=== PATIENT | female | born 1945 ===

== ENCOUNTER 2017-02-11 07:02 | Day surgery (SDC) | payer OTHER ==
[2017-02-03 09:24] VITALS: RESP 18
[2017-02-03 09:33] VITALS: BMI 25.8
[~2017-02-11 07:02] MED LIST: Flurbiprofen 0.3% Opht SOLN OU ONE; Phenylephrine 2.5% Opht Soln OD ONE; Tropicamide 1% Opht 150 DROP/15 ML OD ONE
[2017-02-11 07:32] VITALS: O2SAT 98
[2017-02-11] MEDS ORDERED: Lidocaine 1% 20 MG/2 ML PF AMP ONE (07:52)
[2017-02-11] MEDS ORDERED: Acetylcholine 1% Opth System Pack IO ONE ×2 (07:52→11:18)
[2017-02-11] MEDS ORDERED: EPINEPHrine 1 mg/ml (1:1000) Inj ONE (07:53)
[2017-02-11] MEDS ORDERED: Chondroitin/Hyaluronate Opth Syringe KIT (0.55 ml-0.5 ml) IO ONE ×2 (07:53→11:14)
[2017-02-11] MEDS ORDERED: Povidone Iodine 5% Opht SOLUTION ONE (09:02)
[2017-02-11] MEDS ORDERED: Midazolam 2 MG/2 ML VIAL ONE (11:00)
[2017-02-11] MEDS ORDERED: Lactated Ringer's 1,000 ML IV ONE (11:10)
[2017-02-11] MEDS ORDERED: Tetracaine 0.5% Ophth 2 ML BOTTLE OD ONE (11:11)
[2017-02-11] MEDS ORDERED: Povidone Iodine 5% Opht SOLUTION OD ONE (11:11)
[2017-02-11] MEDS ORDERED: Pilocarpine 1% Opht Soln OD ONE (11:20)
[2017-02-11] MEDS ORDERED: Maxitrol Opht Susp OD ONE (11:22)
[2017-02-11] MEDS ORDERED: BSS 15 ML SOL IR ONE (11:27)
[2017-02-11] MEDS ORDERED: Tropicamide 1% Opht 150 DROP/15 ML RIGHTEYE SCH (11:30)
[2017-02-11] MEDS ORDERED: Flurbiprofen 0.3% Opht SOLN OD SCH (11:30)
[2017-02-11] MEDS ORDERED: PHENYLEPHRINE HCL 2.5% OD SCH (11:30)
[2017-02-11 12:47] VITALS: BP 148/72; PULSE 56; TEMP 98
--- NOTE | 2017-02-12 06:47 | OP ---
SURGEON: ROMMEL MACDONALD MD ANESTHESIOLOGIST: MO BECKMAN MD ANESTHETIC: LOCAL / IV SEDATION PREOPERATIVE DIAGNOSIS: CATARACT RIGHT EYE. POSTOPERATIVE DIAGNOSIS: CATARACT RIGHT EYE. OPERATION: CLEAR CORNEAL PHACOEMULSIFICATION WITH LENS IMPLANT RIGHT EYE. PREPARATION AND PROCEDURE: After the patient was prepped and draped in the usual manner for sterile ophthalmic surgery, local IV sedation was administered ; eye seals were applied to the upper and lower lid margins and an adult wire lid speculum was placed within the lids. Under microsurgical control, a two- step clear corneal incision was made into the anterior chamber. The initial incision was perpendicular to the corneal plane. The second incision with the keratome was placed at a 45-degree angle to the first incision. One cc of one percent Xylocaine MPF was instilled into the anterior chamber to achieve proper intraocular anesthesia. At this time, the Viscoelastic was injected into the anterior chamber for protection of the endothelium and for maintenance of the chamber depth. A 360-degree continuous curvilinear capsulorrhexis was performed using a pre-bent 25-gauge needle. Hydrodissection and hydrodelineation were performed using a Coulter cannula and balanced salt solution. Utilizing the tip of the Coulter cannula, the nucleus was rotated freely within the capsular bag. A standard one-handed phacoemulsification was utilized at this time for sculpting and rotating of the nucleus. The nucleus was fragmented in its entirety and aspirated without any consequence. A standard I&A was carried out for the residual cortical material. No residual material was noted within the capsular bag. The posterior capsule was noted to be clear. Additional Viscoelastic was injected into the capsular bag in preparation for lens implantation. After this has been satisfactorily achieved the intraocular lens injected through the corneal incision into the capsular bag. The intraocular lens was manipulated until it was properly oriented and the Viscoelastic was evacuated from the capsular bag and anterior chamber. The anterior chamber was reformed with balanced salt solution. The corneal incision was irrigated with BSS. The intraocular pressure was found to be within normal limits. This terminated the procedure. The speculum and lid drapes were removed.TobraDex ophthalmic suspension and Pilocarpine 1% drops one drop was applied to the eye. POSTOPERATIVE CONDITION: The patient was brought to the Postanesthesia Recovery area with stable vital signs. DROMMEL PAYAN MDD
== END 2017-02-11 13:30 | disposition home or self-care (01) ==
LOC: H.OPSURG 07:02
PROVIDERS: ATTEND Ophthalmology
DX: H25.011 Cortical age-related cataract, right eye (principal); E11.9 Type 2 diabetes mellitus without complications; I10 Essential (primary) hypertension

== ENCOUNTER 2018-05-12 19:09 | Emergency (ER) | payer OTHER ==
[2018-05-12 19:10] VITALS: BMI 26.4
[2018-05-12 19:28] VITALS: TEMP 98.6; O2SAT 98
--- NOTE | 2018-05-12 20:18 | ED PDOC ---
Lower Extremity Pain/Injury Time Seen by Provider: 05/12/18 19:31 Chief Complaint (Nursing): Lower Extremity Problem/Injury Chief Complaint (Provider): Lower Extremity Problem/Injury History Per: Patient History/Exam Limitations: no limitations Onset/Duration Of Symptoms: Days (x 2), Sudden Onset Current Symptoms Are (Timing): Still Present Additional Complaint(s): 72 year old female with a history of DM and HTN presents to the ED with right heel pain associated with mild swelling for the last 2 days. Patient reports onset of right heel pain after she walked 4 blocks. She is unable to bear weight on her foot. Patient was wearing shoes she normally wears and did not injure or twist her foot. Pain does not extend to ankle and there is no warmth or redness present on foot. PMD: Dr. Luigi Warren Past Medical History Reviewed: Historical Data Vital Signs: Last Vital Signs Temp 98.6 F 05/12/18 19:24 Pulse 66 05/12/18 19:24 Resp 19 05/12/18 19:24 BP 192/82 H 05/12/18 19:24 Pulse Ox 98 05/12/18 19:24 - Medical History PMH: Arthritis, Diabetes, HTN, Hypercholesterolemia, Hyperlipidemia Denies: Chronic Kidney Disease - Surgical History Surgical History: No Surg Hx - Family History Family History: States: Hypertension - Home Medications Home Medications: Ambulatory Orders Medication Instructions Recorded Alendronate Sodium [Binosto] 70 mg PO DAILY 02/11/17 Aspirin [Ecotrin] 81 mg PO DAILY 02/11/17 Glimepiride [Amaryl] 4 mg PO DAILY 02/11/17 Latanoprost 0.005% Opht [Xalatan 1 % .ROUTE DAILY 02/11/17 Opht] Lisinopril/Hydrochlorothiazide 1 tab PO DAILY 02/11/17 [Lisinopril-Hydrochlorothiazide 25 mg-20 mg] MetFORMIN [glucOPHAGE] 1,000 mg PO DAILY 02/11/17 Metoprolol Tartrate [Lopressor] 100 mg PO DAILY 02/11/17 Pravastatin Sodium [Pravachol] 40 mg PO DAILY 02/11/17 amLODIPine [Norvasc] 5 mg PO DAILY 02/11/17 Tramadol HCl [Ultram] 50 mg PO Q6 #15 tab 02/25/17 Clindamycin [Cleocin] 300 mg PO Q6 #40 cap 05/12/18 - Allergies Allergies/Adverse Reactions: Allergies Allergy/AdvReac Type Severity Reaction Status Date / Time Penicillins Allergy SWELLING Verified 02/25/17 09:27 Review of Systems ROS Statement: Except As Marked, All Systems Reviewed And Found Negative Musculoskeletal: Positive for: Foot Pain (right heel pain) Physical Exam - Reviewed Nursing Documentation Reviewed: Yes Vital Signs Reviewed: Yes - Physical Exam Appears: Positive for: Non-toxic, No Acute Distress Head Exam: Positive for: ATRAUMATIC, NORMAL INSPECTION, NORMOCEPHALIC Skin: Positive for: Normal Color, Warm, Dry Eye Exam: Positive for: EOMI, Normal appearance, PERRL Neck: Positive for: Normal, Painless ROM, Supple Cardiovascular/Chest: Positive for: Regular Rate, Rhythm. Negative for: Murmur Respiratory: Positive for: Normal Breath Sounds. Negative for: Wheezing, Respiratory Distress Gastrointestinal/Abdominal: Positive for: Normal Exam, Soft. Negative for: Tenderness Extremity: Positive for: Normal ROM. Negative for: Deformity Neurologic/Psych: Positive for: Alert, Oriented (x 3). Negative for: Motor/ Sensory Deficits - Laboratory Results Result Diagrams: 05/12/18 22:40 05/12/18 21:15 - ECG O2 Sat by Pulse Oximetry: 98 (RA) Pulse Ox Interpretation: Normal Medical Decision Making Medical Decision Makin:37 Impression: acute Achilles tendinitis initial Plan: --CMP --CBC --Toradol 15 mg IM --heel x-ray --Foot x-ray --Podiatry consult time: 20:30 --Evaluated by podiatry. Believe patient may have early subtle cellulitis. X- rays reveal no fracture --Patient is stable and will be discharge with prescription for Clindamycin. To follow up with Dr. Modi. ---- Scribe Attestation: Documented by Kaylynn Watson, acting as a scribe for Fransisco Foy MD Provider Scribe Attestation: All medical record entries made by the Scribe were at my direction and personally dictated by me. I have reviewed the chart and agree that the record accurately reflects my personal performance of the history, physical exam, medical decision making, and the department course for this patient. I have also personally directed, reviewed, and agree with the discharge instructions and disposition. Disposition - Clinical Impression Clinical Impression: Cellulitis of foot - Patient ED Disposition Is Patient to be Admitted: No - Disposition Referrals: Almas Modi DPM [Staff Provider] - Disposition: Routine/Home Disposition Time: 20:31 Condition: STABLE Additional Instructions: CATHERINE NAVAS, thank you for letting us take care of you today. Your provider was Fransisco Foy MD and you were treated for LEFT FOOT PAIN. The emergency medical care you received today was directed at your acute symptoms. If you were prescribed any medication, please fill it and take as directed. It may take several days for your symptoms to resolve. Return to the Emergency Department if your symptoms worsen, do not improve, or if you have any other problems. Please contact your doctor or call one of the physicians/clinics you have been referred to that are listed on the Patient Visit Information form that is included in your discharge packet. Bring any paperwork you were given at discharge with you along with any medications you are taking to your follow up visit. Our treatment cannot replace ongoing medical care by a primary care provider outside of the emergency department. Thank you for allowing the [facility] team to be part of your care today. If you had an X-Ray or CT scan: A Radiologist will review the ED reading if any change in treatment is needed we will contact you. If you had a blood, urine, or wound culture: It will take several days for the results, if any change in treatment is needed we will contact you. If you had an STI test: It will take 48 hours for the results. Please call after 1 week if you have not heard back. Prescriptions: Clindamycin [Cleocin] 300 mg PO Q6 #40 cap Instructions: Cellulitis (Skin Infection), Adult (DC) Forms: [facility] (Cambodian) Print Language: BELGIAN
[2018-05-12] MEDS ORDERED: Clindamycin 150 mg/mL Inj IV STA (20:23)
--- NOTE | 2018-05-12 20:31 | CP.PCM.CON ---
History of Present Illness - History of Present Illness History of Present Illness: Podiatry Consult Note- Dr Murphy 72 y.o female with PMH of HTN, HLD, DM seen and evaluated at bedside for right foot pain. Patient reports the pain started yesterday as she was walking. She denies recent fall or injuries. Denies any recent open wounds or cut. Reports the are appearing more red and swollen. Reports that pain is the same since yesterday. Rates the pain 8/10 and describes the pain as a achy, pulling pain localized to the right plantar heel. Denies recent increase activities. Denies nausea, fever, shortness of breath, chest pains or chills. Interpretation service used during the entire encounter PMH: HTN, DM, HLD PSH: "surgery to not have kids anymore" ALL: penicillin FH: father- kidney disease, mother- DM, HTN, HLD SH: former smoker- smokes over 30 years 2ppd, denies drinking or illicit drug use Past Patient History - Infectious Disease Hx of Infectious Diseases: None - Past Medical History & Family History Past Medical History?: Yes - Past Social History Smoking Status: Former Smoker - CARDIAC Hx Hypercholesterolemia: Yes Hx Hypertension: Yes - PULMONARY Hx Respiratory Disorders: No - NEUROLOGICAL Hx Neurological Disorder: No - HEENT Hx HEENT Problems: Yes Hx Cataracts: Yes - RENAL Hx Chronic Kidney Disease: No - ENDOCRINE/METABOLIC Hx Endocrine Disorders: Yes - HEMATOLOGICAL/ONCOLOGICAL Hx Blood Disorders: No - INTEGUMENTARY Hx Dermatological Problems: No - MUSCULOSKELETAL/RHEUMATOLOGICAL Hx Arthritis: Yes - GASTROINTESTINAL Hx Gastrointestinal Disorders: No - GENITOURINARY/GYNECOLOGICAL Hx Genitourinary Disorders: No - PSYCHIATRIC Hx Psychophysiologic Disorder: No Hx Substance Use: No - SURGICAL HISTORY Hx Surgeries: No Hx Cataract Extraction: Yes (R eye w IOL) - ANESTHESIA Hx Malignant Hyperthermia: No Meds Home Medications: Home Medication List Medication Instructions Recorded Confirmed Type Clindamycin [Cleocin] 300 mg PO Q6 #40 cap 05/12/18 Rx Allergies/Adverse Reactions: Allergies Allergy/AdvReac Type Severity Reaction Status Date / Time Penicillins Allergy SWELLING Verified 02/25/17 09:27 Physical Exam - Constitutional Appears: Well, Non-toxic, No Acute Distress - Extremities Exam Extremities exam: Negative for: calf tenderness Additional comments: Right lower extremity focused examination: VASC: DP and PT pulses 2/4 bilaterally, CFT < 3 seconds x 10 digits, temperature gradient warm to warm, with increase warmed localized to the area of erythema to the posterior medial heel, localilzed edema noted to the posterior medial heel ORTHO: pain with palpation to the posterior medial heel, no pain with palpation along the achilles tendon or the insertion, MM is 5/5 in all four compartments: dorsiflexion, plantarflexion, inversion and eversion. Negative calf pain or tenderness with palpation. With calf squeeze, plantarflexion of the ankle noted. No pain with calcaneus squeeze, no pain at the insertion of the calcaneus during MM testing and calf squeeze NEURO: gross and protective sensation intact DERM: erythema noted to the posterior medial heel measuring approximately 2cm x 2 cm , increase warmth and plan to the site, no open lesions, no streaking, no fluctanance, no abscess, tiny circular hyperkeratotic lesions noted to the entire feet bilaterally in mocassin type distribution (consistent with tinea pedis) - Neurological Exam Neurological exam: Alert, Oriented x3 - Psychiatric Exam Psychiatric exam: Normal Affect, Normal Mood Results - Vital Signs Recent Vital Signs: Last Vital Signs Temp 98.6 F 05/12/18 19:24 Pulse 66 05/12/18 19:24 Resp 19 05/12/18 19:24 BP 192/82 H 05/12/18 19:24 Pulse Ox 98 05/12/18 20:22 - Labs Result Diagrams: 05/12/18 22:40 05/12/18 21:15 Assessment & Plan - Assessment and Plan (Free Text) Assessment: 72 y.o female with PMH of HTN, HLD, DM with possible localized cellulitis to right heel Plan: Patient examined and evaluated Discussed plan in detail with attending Dr. Murphy Labs and vitals reviewed- afebrile, absent leukocytosis X-rays WNL Dispense surgical shoe. WBAT to the right in surgical shoe Take OTC pain medication for pain Recommend Clindamycin PO 7-10 days Follow up with Dr. Murphy in office within 1 week Educated on signs and symptoms of worsening infection and told to seek help immediately if present Thank you for allowing us to participate in patient's care Please reconsult as needed
[2018-05-12 21:10] VITALS: BP 175/98; PULSE 58; RESP 16
[2018-05-12 21:49] LABS: ALB/GLOB RATIO 1.4 (1.0-2.1); ALBUMIN 4.3 g/dL (3.5-5.0); ALT/SGPT 25 U/L (9-52); AST/SGOT 30 U/L (14-36); BLOOD UREA NITROGEN 12 mg/dl (7-17); CALCIUM 9.7 mg/dL (8.4-10.2); GFR AFRICAN-AMERICAN > 60; GFR NON-AFRICAN AMERICAN > 60
[2018-05-12 22:49] LABS: RBC 5.3 Mil/uL (3.80-5.20); WHITE BLOOD COUNT 7.6 K/uL (4.8-10.8)
[2018-05-12 22:50] LABS: HEMOGLOBIN 13.8 g/dL (12.0-16.0); MEAN CELL VOLUME 78.3 fl (81.0-99.0); MEAN CORPUSCULAR HGB CONC 33.2 g/dL (33.0-37.0); RED CELL DISTRIBUTION WIDTH 14.9 % (11.5-14.5)
--- NOTE | 2018-05-13 11:14 | RAD ---
Date of service: 05/12/2018 PROCEDURE: Radiographs of the right calcaneus/hindfoot. HISTORY: Pain. No history of recent/ related trauma provided COMPARISON: None available. TECHNIQUE: Frontal and lateral radiographs of the calcaneus. FINDINGS: No fracture or joint dislocation. No focal lesion. Achilles tendon insertion calcaneal spur. IMPRESSION: Small Achilles tendon insertion spur. Otherwise unremarkable study.
--- NOTE | 2018-05-13 11:16 | RAD ---
Date of service: 05/12/2018 PROCEDURE: Right Foot Radiographs. HISTORY: Pain. No history of recent/ related trauma provided COMPARISON: 07/16/2016. FINDINGS: BONES: Achilles tendon insertion spur. No acute fracture. No significant interval change compared to the prior examination(s). JOINTS: Stable hallux valgus deformity. SOFT TISSUES: Normal. OTHER FINDINGS: None. IMPRESSION: No acute findings related to/accounting for the clinical presentation. No significant interval change compared to the prior examination(s).
== END 2018-05-12 22:20 | disposition home or self-care (01) ==
LOC: H.ER 19:09
DX: L03.116 Cellulitis of left lower limb (principal); E11.9 Type 2 diabetes mellitus without complications; E78.00 Pure hypercholesterolemia, unspecified; I10 Essential (primary) hypertension; Z79.84 Long term (current) use of oral hypoglycemic drugs; Z88.0 Allergy status to penicillin; M76.60 Achilles tendinitis, unspecified leg
CPT/HCPCS: 73630; 73650; 80053; 82948; 85027; 87040; 96374; 99284; J1885

== ENCOUNTER 2018-10-11 09:08 | Emergency (ER) | payer OTHER ==
[2018-10-11 09:21] VITALS: TEMP 98.2; O2SAT 100
[2018-10-11 09:22] VITALS: BMI 22.1
--- NOTE | 2018-10-11 10:52 | ED PDOC ---
Upper Extremity Pain/Injury Time Seen by Provider: 10/11/18 09:38 Chief Complaint (Nursing): Upper Extremity Problem/Injury Chief Complaint (Provider): Upper Extremity Problem/Injury History Per: Patient History/Exam Limitations: no limitations Onset/Duration Of Symptoms: Days (x14) Current Symptoms Are (Timing): Still Present Quality: "Pain" Additional Complaint(s): 73 y/o female with a PMHx of Hypertension, presents to the ED complaining of right side shoulder pain onset 2 weeks associated with chills. Patient reports to taking 6 tablets of Zithromax for pain. Patient states her job requires heavy lifting of boxes which she thinks is the reason for her pain. Patient additionally report pain worsens with movement. Otherwise, patient denies shortness of breath, nausea, cough, fever, sore throat, vomiting, diarrhea and any urinary changes. PMD: None Past Medical History Reviewed: Historical Data, Nursing Documentation, Vital Signs Vital Signs: Last Vital Signs Temp 98.2 F 10/11/18 09:18 Pulse 68 10/11/18 09:18 Resp 20 10/11/18 09:18 BP 160/74 H 10/11/18 09:18 Pulse Ox 100 10/11/18 09:18 - Medical History PMH: Arthritis, Diabetes, HTN, Hypercholesterolemia, Hyperlipidemia Denies: Chronic Kidney Disease - Surgical History Surgical History: No Surg Hx - Family History Family History: States: Hypertension - Home Medications Home Medications: Ambulatory Orders Medication Instructions Recorded Alendronate Sodium [Binosto] 70 mg PO DAILY 02/11/17 Aspirin [Ecotrin] 81 mg PO DAILY 02/11/17 Glimepiride [Amaryl] 4 mg PO DAILY 02/11/17 Latanoprost 0.005% Opht [Xalatan 1 % .ROUTE DAILY 02/11/17 Opht] Lisinopril/Hydrochlorothiazide 1 tab PO DAILY 02/11/17 [Lisinopril-Hydrochlorothiazide 25 mg-20 mg] MetFORMIN [glucOPHAGE] 1,000 mg PO DAILY 02/11/17 Metoprolol Tartrate [Lopressor] 100 mg PO DAILY 02/11/17 Pravastatin Sodium [Pravachol] 40 mg PO DAILY 02/11/17 amLODIPine [Norvasc] 5 mg PO DAILY 02/11/17 Tramadol HCl [Ultram] 50 mg PO Q6 #15 tab 02/25/17 Clindamycin [Cleocin] 300 mg PO Q6 #40 cap 05/12/18 Famotidine [Pepcid] 20 mg PO BID #28 tab 10/11/18 Naproxen [Naprosyn] 500 mg PO BID PRN #20 tablet 10/11/18 - Allergies Allergies/Adverse Reactions: Allergies Allergy/AdvReac Type Severity Reaction Status Date / Time Penicillins Allergy SWELLING Verified 02/25/17 09:27 Review of Systems ROS Statement: Except As Marked, All Systems Reviewed And Found Negative Constitutional: Positive for: Chills. Negative for: Fever ENT: Negative for: Throat Pain Respiratory: Negative for: Cough, Shortness of Breath Gastrointestinal: Negative for: Nausea, Vomiting Genitourinary Female: Negative for: Dysuria, Frequency, Hematuria Musculoskeletal: Positive for: Shoulder Pain Physical Exam - Reviewed Nursing Documentation Reviewed: Yes Vital Signs Reviewed: Yes - Physical Exam Appears: Positive for: No Acute Distress Head Exam: Positive for: ATRAUMATIC, NORMAL INSPECTION, NORMOCEPHALIC Skin: Positive for: Normal Color, Warm, Dry Eye Exam: Positive for: EOMI, Normal appearance, PERRL ENT: Positive for: Normal ENT Inspection Neck: Positive for: Normal Cardiovascular/Chest: Positive for: Regular Rate, Rhythm. Negative for: Murmur Respiratory: Positive for: Normal Breath Sounds. Negative for: Respiratory Distress Gastrointestinal/Abdominal: Positive for: Normal Exam Back: Positive for: Normal Inspection Extremity: Positive for: Tenderness (tenderness on palpitation to right shoulder). Negative for: Normal ROM (Limited ROM secondary to pain. Pain with abduction of the right shoulder) Neurologic/Psych: Positive for: Alert, Oriented (x3). Negative for: Motor/Sensory Deficits - ECG O2 Sat by Pulse Oximetry: 100 (RA) Pulse Ox Interpretation: Normal - Radiology X-Ray: Viewed By Me (shoulder) X-Ray Interpretation: No Acute Disease - Progress Re-evaluation Time: 12:00 Condition: Improved Medical Decision Making Medical Decision Making: Time: 10:02 Plan: -EKG -Flexeril 10mg PO Once One -Toradol 60 mg IM Stat - Right Shoulder RAD Scribe Attestation: Documented by Letty Baird, acting as a scribe for Dr. Nancie Bazzi Provider Scribe Attestation: All medical record entries made by the Scribe were at my direction and personally dictated by me. I have reviewed the chart and agree that the record accurately reflects my personal performance of the history, physical exam, medical decision making, and the department course for this patient. I have also personally directed, reviewed, and agree with the discharge instructions and disposition. Disposition - Clinical Impression Clinical Impression: DJD (degenerative joint disease) - Patient ED Disposition Is Patient to be Admitted: No Doctor Will See Patient In The: Office Counseled Patient/Family Regarding: Diagnosis, Need For Followup, Rx Given - Disposition Disposition: Routine/Home Disposition Time: 12:00 Condition: IMPROVED Prescriptions: Famotidine [Pepcid] 20 mg PO BID #28 tab Naproxen [Naprosyn] 500 mg PO BID PRN #20 tablet PRN Reason: Pain, Moderate (4-7) Instructions: Osteoarthritis Forms: [facility] (Arabic) - POA Present On Arrival: None
[2018-10-11 12:26] VITALS: BP 150/70; PULSE 70; RESP 18
--- NOTE | 2018-10-11 16:05 | RAD ---
Date of service: 10/11/2018 PROCEDURE: Radiographs of the Right Shoulder HISTORY: pain x 2-3 weeks COMPARISON: Bilateral shoulder 03/06/2016. FINDINGS: BONES: No acute fracture dislocation. No destructive bony lesion appreciated. Advanced degenerative changes are reiterated at the right acromioclavicular joint and remain mild at the glenohumeral joint. Local soft tissues appear diffusely unremarkable. JOINTS: As above. SOFT TISSUES: As above. OTHER FINDINGS: None. IMPRESSION: No acute fracture or dislocation. Stable exam including degenerative changes at the acromioclavicular greater than glenohumeral joint.
--- NOTE | 2018-10-12 14:57 | CARD ---
APPROVED REPORT Date of service: 10/11/2018 EKG Measurement Heart [id number] <Conclusion> Normal sinus rhythm Nonspecific ST abnormality Abnormal ECG
== END 2018-10-11 12:23 | disposition home or self-care (01) ==
LOC: H.ER 09:08
DX: M19.011 Primary osteoarthritis, right shoulder (principal); E11.9 Type 2 diabetes mellitus without complications; E78.00 Pure hypercholesterolemia, unspecified; I10 Essential (primary) hypertension; Z79.84 Long term (current) use of oral hypoglycemic drugs; Z88.0 Allergy status to penicillin
CPT/HCPCS: 73030; 93005; 96372; 99284; J1885

== ENCOUNTER 2018-11-06 06:31 | Emergency (ER) | payer OTHER ==
[2018-11-06 06:31] VITALS: BMI 22.1
[2018-11-06] MEDS ORDERED: Sodium Chloride 0.9% 1,000 ML IV STA (07:21)
--- NOTE | 2018-11-06 07:32 | ED PDOC ---
HPI: CCC, URI, Sore Throat Time Seen by Provider: 11/06/18 07:04 Chief Complaint (Nursing): Cough, Cold, Congestion Chief Complaint (Provider): Cough, Cold, Congestion History Per: Patient History/Exam Limitations: no limitations Onset/Duration Of Symptoms: Days (x3) Current Symptoms Are (Timing): Still Present Additional Complaint(s): 73 year old female with pmhx of HTN and diabetes presents to the ED for evaluation of nasal congestion for the past three days associated with a cough productive of sputum, weakness / fatigue, and poor PO intake. Patient notes that she is insure if she has a fever, but has just been very tired. Otherwise denies vomiting and diarrhea. PMD: [facility] Past Medical History Reviewed: Historical Data, Nursing Documentation, Vital Signs Vital Signs: Last Vital Signs Temp 99 F 11/06/18 06:41 Pulse 87 11/06/18 06:41 Resp 19 11/06/18 06:41 BP 165/72 H 11/06/18 06:41 Pulse Ox 97 11/06/18 06:41 - Medical History PMH: Arthritis, Diabetes, HTN, Hypercholesterolemia, Hyperlipidemia Denies: Chronic Kidney Disease - Surgical History Other surgeries: Cataracts: R eye w IOL - Family History Family History: States: Hypertension - Social History Current smoker - smoking cessation education provided: No Ex-Smoker (has not smoked in the last 12 months): Yes Alcohol: None Drugs: Denies - Immunization History Hx Influenza Vaccination: Yes - Home Medications Home Medications: Ambulatory Orders Medication Instructions Recorded Alendronate Sodium [Binosto] 70 mg PO DAILY 02/11/17 Aspirin [Ecotrin] 81 mg PO DAILY 02/11/17 Glimepiride [Amaryl] 4 mg PO DAILY 02/11/17 Latanoprost 0.005% Opht [Xalatan 1 % .ROUTE DAILY 02/11/17 Opht] Lisinopril/Hydrochlorothiazide 1 tab PO DAILY 02/11/17 [Lisinopril-Hydrochlorothiazide 25 mg-20 mg] MetFORMIN [glucOPHAGE] 1,000 mg PO DAILY 02/11/17 Metoprolol Tartrate [Lopressor] 100 mg PO DAILY 02/11/17 Pravastatin Sodium [Pravachol] 40 mg PO DAILY 02/11/17 amLODIPine [Norvasc] 5 mg PO DAILY 02/11/17 Tramadol HCl [Ultram] 50 mg PO Q6 #15 tab 02/25/17 Clindamycin [Cleocin] 300 mg PO Q6 #40 cap 05/12/18 Famotidine [Pepcid] 20 mg PO BID #28 tab 10/11/18 Naproxen [Naprosyn] 500 mg PO BID PRN #20 tablet 10/11/18 Benzonatate [Tessalon Perle] 100 mg PO TID PRN #20 capsule 11/06/18 - Allergies Allergies/Adverse Reactions: Allergies Allergy/AdvReac Type Severity Reaction Status Date / Time Penicillins Allergy SWELLING Verified 11/06/18 06:48 Review of Systems ROS Statement: Except As Marked, All Systems Reviewed And Found Negative Constitutional: Positive for: Weakness (and fatigue) ENT: Positive for: Nose Congestion Respiratory: Positive for: Cough, Sputum Gastrointestinal: Positive for: Other (poor PO intake). Negative for: Vomiting, Diarrhea Physical Exam - Reviewed Nursing Documentation Reviewed: Yes Vital Signs Reviewed: Yes - Physical Exam Appears: Positive for: No Acute Distress (but appears ill and weak) Head Exam: Positive for: ATRAUMATIC, NORMOCEPHALIC Skin: Positive for: Normal Color, Warm Eye Exam: Positive for: Normal appearance, EOMI, PERRL ENT: Positive for: Normal ENT Inspection Neck: Positive for: Normal, Painless ROM, Supple Cardiovascular/Chest: Positive for: Regular Rate, Rhythm Respiratory: Positive for: Normal Breath Sounds, Other (good air entry bilaterally). Negative for: Respiratory Distress Gastrointestinal/Abdominal: Positive for: Normal Exam, Soft. Negative for: Tenderness, Distended Extremity: Positive for: Normal ROM. Negative for: Tenderness, Swelling Neurologic/Psych: Positive for: Alert, Oriented (x3) - Laboratory Results Result Diagrams: 11/06/18 07:40 11/06/18 07:40 - ECG O2 Sat by Pulse Oximetry: 97 (RA) Pulse Ox Interpretation: Normal - Radiology X-Ray: Viewed By Me, Read By Radiologist X-Ray Interpretation: No Acute Disease - Progress Re-evaluation Time: 09:15 Condition: Re-examined, Improved (she appears better. ) Medical Decision Making Medical Decision Making: Time: 718 Initial Impression: URI with possible lower respiratory tract involvement, possible pneumonia Initial Plan: --BMP --CBC with differential --CXR --Normal saline IV --Accucheck --Influenza A B swab --Reevaluation Scribe Attestation: Documented by Melody Rae, acting as a scribe for Nancie Bazzi MD. Provider Scribe Attestation: All medical record entries made by the Scribe were at my direction and personal ly dictated by me. I have reviewed the chart and agree that the record accurately reflects my personal performance of the history, physical exam, medical decision making, and the department course for this patient. I have also personally directed, reviewed, and agree with the discharge instructions and disposition. Disposition - Clinical Impression Clinical Impression: Common cold - Patient ED Disposition Is Patient to be Admitted: No Doctor Will See Patient In The: Office Counseled Patient/Family Regarding: Diagnosis, Need For Followup - Disposition Referrals: [facility] [Outside] formerly [facility] [Outside] Disposition: Routine/Home Disposition Time: 09:15 Condition: STABLE Prescriptions: Benzonatate [Tessalon Perle] 100 mg PO TID PRN #20 capsule PRN Reason: Cough Instructions: Viral Upper Respiratory Infection, Adult (DC) Forms: [employer] (Serbian) Print Language: MAORI - POA Present On Arrival: None
--- NOTE | 2018-11-06 08:02 | RAD ---
Date of service: 11/06/2018 HISTORY: cough, weakness COMPARISON: Chest radiographs 02/03/2017. TECHNIQUE: Chest PA and lateral FINDINGS: LUNGS: No active pulmonary disease. PLEURA: No significant pleural effusion identified. No pneumothorax apparent. CARDIOVASCULAR: No aortic atherosclerotic calcification present. Normal cardiac size. No pulmonary vascular congestion. OSSEOUS STRUCTURES: No significant abnormalities. VISUALIZED UPPER ABDOMEN: Normal. OTHER FINDINGS: None. IMPRESSION: No interval acute cardiopulmonary disease appreciated.
[2018-11-06 08:14] LABS: BASO # 0.1 K/uL (0.0-0.2); BASO % 0.8 % (0.0-2.0); EOS # 0.2 K/uL (0.0-0.7); EOS % 2.8 % (0.0-4.0); HEMOGLOBIN 12.9 g/dL (12.0-16.0); LYMPH # 1.8 K/uL (1.0-4.3); LYMPH % 24.6 % (20.0-40.0); MEAN CELL VOLUME 79.4 fl (81.0-99.0); MEAN CORPUSCULAR HEMOGLOBIN 26.2 pg (27.0-31.0); MEAN PLATELET VOLUME 10.6 fl (7.2-11.7); MONO # 0.7 K/uL (0.0-0.8); MONO % 9.4 % (0.0-10.0); NEUT # 4.6 K/uL (1.8-7.0); NEUT % 62.4 % (50.0-75.0); RBC 4.93 Mil/uL (3.80-5.20); RED CELL DISTRIBUTION WIDTH 14.2 % (11.5-14.5); WHITE BLOOD COUNT 7.4 K/uL (4.8-10.8)
[2018-11-06 08:29] LABS: BLOOD UREA NITROGEN 13 mg/dl (7-17); CALCIUM 9.5 mg/dL (8.4-10.2); GFR NON-AFRICAN AMERICAN > 60
[2018-11-06 09:57] VITALS: BP 157/85; PULSE 78; RESP 16; TEMP 98.4; O2SAT 98
== END 2018-11-06 09:57 | disposition home or self-care (01) ==
LOC: H.ER 06:31
DX: J00 Acute nasopharyngitis [common cold] (principal); E11.9 Type 2 diabetes mellitus without complications; I10 Essential (primary) hypertension; Z87.891 Personal history of nicotine dependence; Z88.0 Allergy status to penicillin; Z79.84 Long term (current) use of oral hypoglycemic drugs
CPT/HCPCS: 71046; 80048; 82948; 85025; 87804; 96360; 99284; J7030